=== PATIENT | male | born 1965 | race Caucasian/White ===

== ENCOUNTER 2020-09-28 13:32 | Emergency (ER) | payer OTHER ==
[~2020-09-28] VITALS: Ht 157.5 cm; Wt 72.7 kg
[~2020-09-28 13:32] MED LIST: NOCURR
[2020-09-28] MEDS ORDERED: ACETAMINOPHEN 325 MG TABLET PO ONE (14:30)
[2020-09-28 16:00] VITALS: BP 140/94
== END 2020-09-28 16:10 | disposition home or self-care (01) ==
LOC: EMS 13:32
DX: S83.92XA Sprain of unspecified site of left knee, initial encounter (principal); W20.8XXA Other cause of strike by thrown, projected or falling object, initial encounter; Y93.89 Activity, other specified; Y92.89 Other specified places as the place of occurrence of the external cause; Y99.8 Other external cause status
CPT/HCPCS: 99283